=== PATIENT | male | born 1955 | race African-American/Black ===

== ENCOUNTER 2018-09-24 14:37 | Inpatient (IN) | payer MEDICARE ==
[~2018-09-24] VITALS: Ht 182.9 cm; Wt 93.0 kg
[2018-09-24 15:19] LABS: BASOPHILS # (AUTO) 0.1 K/uL (0.0-8.0); LYMPHOCYTES # (AUTO) 1.8 K/uL (20.0-40.0); MONOCYTES # (AUTO) 0.4 K/uL (2.0-10.0)
[2018-09-24 15:20] LABS: BASOPHILS % (AUTO) 0.8 % (0.0-2.0); CREATININE 3.2 mg/dL (0.6-1.3); EOSINOPHILS % (AUTO) 0.6 % (0.0-7.0); LYMPHOCYTES % (AUTO) 25.6 % (20.5-51.5); MEAN CORPUSCULAR HEMOGLOBIN 25.2 uug (23.8-33.4); MEAN CORPUSCULAR HGB CONC 31 g/dL (32.5-36.3); MEAN CORPUSCULAR VOLUME 80.4 fL (73.0-96.2); MONOCYTES % (AUTO) 5.1 % (0.0-11.0); NEUTROPHILS # (AUTO) 4.8 K/uL (1.8-8.9); NEUTROPHILS % (AUTO) 67.9 % (38.5-71.5); PLATELET COUNT (AUTO) 313 K/uL (152-348); POTASSIUM 4.6 mmol/L (3.5-5.1)
[2018-09-24 15:21] LABS: HEMATOCRIT 16.7 % (36.7-47.1); HEMOGLOBIN 5.2 g/dL (12.5-16.3); RED BLOOD CELL COUNT(AUTO) 2.08 MIL/uL (4.06-5.63)
[2018-09-24 15:26] LABS: BILIRUBIN,DIRECT 0.1 mg/dL (0.0-0.2); BILIRUBIN,TOTAL 0.3 mg/dL (0.2-1.0)
[2018-09-24] MEDS ORDERED: PANTOPRAZOLE SODIUM IV 80 MG in IV DEXTROSE 5% 100 ML IV ONE (15:45)
[2018-09-24] MEDS ORDERED: PANTOPRAZOLE SODIUM 40 MG VIAL ONE (16:01)
[2018-09-24 16:02] LABS: BAND % (MANUAL) 1 % (0-10); LYMPHOCYTES % (MANUAL) 24 % (20-40); MONOCYTES % (MANUAL) 4 % (2-10); NEUTROPHILS % (MANUAL) 71 % (42-75)
[2018-09-24] MEDS ORDERED: ALLOPURINOL PO (17:05)
[2018-09-24] MEDS ORDERED: MULT-1169 PO (17:05)
[2018-09-24] MEDS ORDERED: MAGN250T2 PO (17:05)
[2018-09-24] MEDS ORDERED: AMLODIPINE PO (17:05)
[2018-09-24] MEDS ORDERED: REPA1TAB6 PO (17:05)
[2018-09-24] MEDS ORDERED: FINA5TAB11 PO (17:05)
[2018-09-24] MEDS ORDERED: CALC600T12 PO (17:05)
[2018-09-24] MEDS ORDERED: ASPI81TA44 PO (17:05)
[2018-09-24] MEDS ORDERED: CHOL400C8 PO (17:05)
[2018-09-24] MEDS ORDERED: SODI650T PO (17:05)
[2018-09-24] MEDS ORDERED: LISINOPRIL PO (17:05)
[2018-09-24] MEDS ORDERED: [UNRECOGNIZED DRUG - OTHER] PO (17:05)
[2018-09-24] MEDS ORDERED: ONDANSETRON 4 MG/2 ML VIAL IV PRN (18:30)
[2018-09-24] MEDS ORDERED: ENALAPRILAT DIHYDRATE 1.25 MG/1 ML VIAL IV PRN (18:30)
[2018-09-24] MEDS ORDERED: ACETAMINOPHEN 650 MG SUPP.RECT RC PRN (18:30)
[2018-09-24] MEDS ORDERED: MORPHINE SULFATE 2 MG/1 ML DISP.SYRIN IV PRN (18:30)
[2018-09-24 19:28] VITALS: BP 126/67
[2018-09-24 19:34] LABS: IRON, SERUM 383 ug/dL (50-175)
[2018-09-24] MEDS: IV D5 1/2 NS 1000 ML 1,000 ML IV PRN (20:32)
[2018-09-24 23:55] VITALS: BP 128/66
[2018-09-24 23:58] VITALS: BP 128/66
[2018-09-25] VITALS (15 sets, daily range): BP systolic 126–160; BP diastolic 65–75
[2018-09-25 07:33] LABS: BASOPHILS # (AUTO) 0.1 K/uL (0.0-8.0); BASOPHILS % (AUTO) 1.1 % (0.0-2.0); EOSINOPHILS # (AUTO) 0.1 K/uL (0.0-0.7); EOSINOPHILS % (AUTO) 0.9 % (0.0-7.0); LYMPHOCYTES # (AUTO) 1.5 K/uL (20.0-40.0); MEAN CORPUSCULAR HEMOGLOBIN 25.5 uug (23.8-33.4); MEAN CORPUSCULAR HGB CONC 32 g/dL (32.5-36.3); MONOCYTES # (AUTO) 0.5 K/uL (2.0-10.0); MONOCYTES % (AUTO) 7.7 % (0.0-11.0); NEUTROPHILS # (AUTO) 4.4 K/uL (1.8-8.9); NEUTROPHILS % (AUTO) 67.3 % (38.5-71.5); PLATELET COUNT (AUTO) 281 K/uL (152-348); WHITE BLOOD COUNT (AUTO) 6.6 K/uL (3.6-10.2)
[2018-09-25 07:47] LABS: BILIRUBIN,TOTAL 0.2 mg/dL (0.2-1.0); CREATININE 3.3 mg/dL (0.6-1.3); MAGNESIUM 1.6 mg/dL (1.8-2.4); PHOSPHOROUS 3.3 mg/dL (2.5-4.9); POTASSIUM 4.6 mmol/L (3.5-5.1); TOTAL PROTEIN, SERUM 5.3 g/dL (6.4-8.2); URIC ACID 6.8 mg/dL (3.5-7.2)
[2018-09-25 07:51] LABS: HEMATOCRIT 18.2 % (36.7-47.1); RED BLOOD CELL COUNT(AUTO) 2.27 MIL/uL (4.06-5.63)
[2018-09-25 07:53] LABS: HEMOGLOBIN 5.8 g/dL (12.5-16.3)
[2018-09-25 08:14] LABS: THYROID STIMULATING HORMONE 1.539 mIU/mL (0.358-3.740)
[2018-09-25] MEDS ORDERED: PANTOPRAZOLE SODIUM 40 MG VIAL IV SCH (09:00)
[2018-09-25] MEDS ORDERED: MAGNESIUM SULFATE/D5W 100 ML IV SCH ×2 (09:15→09:30)
[2018-09-25] MEDS ORDERED: DEXTROSE 50% 50 ML DISP.SYRIN IV PRN (09:15)
[2018-09-25] MEDS: ESOMEPRAZOLE SODIUM 40 MG VIAL IV SCH (09:33)
[2018-09-25] MEDS: BLOOD SUGAR DIAGNOSTIC 1 EACH STRIP VI SCH ×3 (12:44→23:57)
[2018-09-25] MEDS: INSULIN REGULAR, HUMAN 300 UNIT/3 ML VIAL SQ PRN ×2 (12:46→18:17)
[2018-09-25] MEDS ORDERED: EPOETIN ALFA 10,000 UNITS/ML VIAL SQ ONE (16:00)
[2018-09-25] MEDS ORDERED: diphenhydrAMINE 50 MG/1 ML VIAL IV PRN (19:15)
[2018-09-25] MEDS ORDERED: GOLYTELY 4000 ML BOTTLE PO ONE (19:45)
[2018-09-25 22:38] LABS: *OCCULT BLOOD STOOL POSITIVE (NEGATIVE)
[2018-09-26 03:30] VITALS: BP 145/77
[2018-09-26] MEDS ORDERED: SORBITOL 70% SOLUTION 30 ML UDC ONE (05:40)
[2018-09-26] MEDS: SORBITOL 70% SOLUTION 30 ML UDC PO ONE ×2 (06:26→06:28)
[2018-09-26] MEDS: BLOOD SUGAR DIAGNOSTIC 1 EACH STRIP VI SCH ×3 (06:26→17:51)
[2018-09-26 06:37] LABS: BASOPHILS # (AUTO) 0.1 K/uL (0.0-8.0); EOSINOPHILS # (AUTO) 0.1 K/uL (0.0-0.7); MEAN CORPUSCULAR VOLUME 81.3 fL (73.0-96.2); MONOCYTES # (AUTO) 0.5 K/uL (2.0-10.0); NEUTROPHILS # (AUTO) 5.5 K/uL (1.8-8.9); WHITE BLOOD COUNT (AUTO) 7.7 K/uL (3.6-10.2)
[2018-09-26 06:40] LABS: BASOPHILS % (AUTO) 0.8 % (0.0-2.0); EOSINOPHILS % (AUTO) 1.5 % (0.0-7.0); HEMATOCRIT 21.6 % (36.7-47.1); LYMPHOCYTES # (AUTO) 1.4 K/uL (20.0-40.0); LYMPHOCYTES % (AUTO) 18.8 % (20.5-51.5); MEAN CORPUSCULAR HEMOGLOBIN 26.1 uug (23.8-33.4); MEAN CORPUSCULAR HGB CONC 32 g/dL (32.5-36.3); MONOCYTES % (AUTO) 6.6 % (0.0-11.0); NEUTROPHILS % (AUTO) 72.3 % (38.5-71.5); PLATELET COUNT (AUTO) 288 K/uL (152-348); RED BLOOD CELL COUNT(AUTO) 2.66 MIL/uL (4.06-5.63)
[2018-09-26 06:50] LABS: CREATININE 2.9 mg/dL (0.6-1.3); MAGNESIUM 1.7 mg/dL (1.8-2.4); PHOSPHOROUS 3.2 mg/dL (2.5-4.9); POTASSIUM 4.5 mmol/L (3.5-5.1)
[2018-09-26] MEDS: INSULIN REGULAR, HUMAN 300 UNIT/3 ML VIAL SQ PRN ×3 (07:32→17:52)
[2018-09-26 07:43] LABS: HEMOGLOBIN 6.9 g/dL (12.5-16.3)
[2018-09-26] MEDS: ESOMEPRAZOLE SODIUM 40 MG VIAL IV SCH (08:28)
[2018-09-26 10:11] LABS: EOSINOPHILS % (MANUAL) 2 % (0-8); LYMPHOCYTES % (MANUAL) 20 % (20-40); MONOCYTES % (MANUAL) 6 % (2-10); NEUTROPHILS % (MANUAL) 72 % (42-75)
[2018-09-26] MEDS ORDERED: ALBUTEROL SULFATE 2.5 MG/3 ML NEBU ONE (11:12)
[2018-09-26] MEDS ORDERED: IPRATROPIUM BROMIDE 0.5 MG/2.5 ML NEBU ONE (11:12)
[2018-09-26] MEDS ORDERED: IV NORMAL SALINE 100 ML BAG IV ONE (11:44)
[2018-09-26] MEDS ORDERED: IV NORMAL SALINE 1000 ML BAG IV ONE (11:44)
[2018-09-26] MEDS ORDERED: ETOMIDATE 20 MG/10 ML VIAL MC ONE (11:44)
[2018-09-26] MEDS ORDERED: LIDOCAINE HCL 1% 20 ML VIAL MC ONE (11:44)
[2018-09-26] MEDS ORDERED: diphenhydrAMINE 50 MG/1 ML VIAL MC ONE (11:44)
[2018-09-26] MEDS ORDERED: IRR STERIL WATER FOR IRR 1000 ML BOTTLE IR ONE (11:44)
[2018-09-26] MEDS ORDERED: PROPOFOL 200 MG/20 ML BOTTLE IV ONE (11:44)
[2018-09-26 12:18] VITALS: BP 146/77
[2018-09-26] MEDS: IV D5 1/2 NS 1000 ML 1,000 ML IV PRN (15:45)
[2018-09-26 15:48] VITALS: BP 139/77
[2018-09-26] MEDS ORDERED: MAGNESIUM SULFATE/D5W 100 ML IV SCH (16:00)
[2018-09-26 19:38] VITALS: BP 153/84
[2018-09-26 23:49] VITALS: BP 126/78
[2018-09-27] MEDS ORDERED: DEXTROSE 50% 50 ML DISP.SYRIN IV PRN ×2 (00:15→00:30)
[2018-09-27] MEDS ORDERED: BLOOD SUGAR DIAGNOSTIC 1 EACH STRIP VI SCH (00:15)
[2018-09-27] MEDS ORDERED: INSULIN REGULAR, HUMAN 300 UNIT/3 ML VIAL SQ PRN (00:30)
[2018-09-27] MEDS: BLOOD SUGAR DIAGNOSTIC 1 EACH STRIP VI SCH ×3 (00:37→11:30)
[2018-09-27 03:34] VITALS: BP 138/79
[2018-09-27] MEDS: IV D5 1/2 NS 1000 ML 1,000 ML IV PRN (04:25)
[2018-09-27 06:35] LABS: BILIRUBIN,TOTAL 0.3 mg/dL (0.2-1.0); CREATININE 2.9 mg/dL (0.6-1.3); MAGNESIUM 2.1 mg/dL (1.8-2.4); PHOSPHOROUS 4.1 mg/dL (2.5-4.9); POTASSIUM 4.4 mmol/L (3.5-5.1); TOTAL PROTEIN, SERUM 5.7 g/dL (6.4-8.2)
[2018-09-27 07:04] LABS: BASOPHILS % (AUTO) 0.5 % (0.0-2.0); EOSINOPHILS # (AUTO) 0.1 K/uL (0.0-0.7); EOSINOPHILS % (AUTO) 1.2 % (0.0-7.0); LYMPHOCYTES # (AUTO) 1.6 K/uL (20.0-40.0); LYMPHOCYTES % (AUTO) 19.6 % (20.5-51.5); MEAN CORPUSCULAR HGB CONC 32 g/dL (32.5-36.3); MEAN CORPUSCULAR VOLUME 83.4 fL (73.0-96.2); MONOCYTES # (AUTO) 0.5 K/uL (2.0-10.0); NEUTROPHILS % (AUTO) 72.7 % (38.5-71.5); PLATELET COUNT (AUTO) 320 K/uL (152-348); WHITE BLOOD COUNT (AUTO) 8.2 K/uL (3.6-10.2)
[2018-09-27 07:15] LABS: HEMATOCRIT 25.9 % (36.7-47.1); HEMOGLOBIN 8.4 g/dL (12.5-16.3)
[2018-09-27] MEDS ORDERED: REPAGLINIDE 1 MG TABLET PO SCH (09:00)
[2018-09-27] MEDS: ESOMEPRAZOLE SODIUM 40 MG VIAL IV SCH (09:04)
[2018-09-27] MEDS ORDERED: ASPI-618 PO (10:56)
== END 2018-09-27 11:45 | disposition home or self-care (01) | DRG 377 ==
LOC: ER 14:39 → TELE3 17:29
PROVIDERS: ADMIT Internal Medicine; ATTEND Internal Medicine
PROC: 30233N1 Transfusion of Nonautologous Red Blood Cells into Peripheral Vein, Percutaneous Approach (ICD-10-PCS; principal; 2018-09-25)
PROC: 0DJD8ZZ Inspection of Lower Intestinal Tract, Via Natural or Artificial Opening Endoscopic (ICD-10-PCS; 2018-09-26)
PROC: 0DJ08ZZ Inspection of Upper Intestinal Tract, Via Natural or Artificial Opening Endoscopic (ICD-10-PCS; 2018-09-26)
DX: K25.4 Chronic or unspecified gastric ulcer with hemorrhage (principal); N17.0 Acute kidney failure with tubular necrosis; I21.A1 Myocardial infarction type 2; E43 Unspecified severe protein-calorie malnutrition; D62 Acute posthemorrhagic anemia; I50.22 Chronic systolic (congestive) heart failure; N17.9 Acute kidney failure, unspecified; N18.4 Chronic kidney disease, stage 4 (severe); K26.4 Chronic or unspecified duodenal ulcer with hemorrhage; E11.65 Type 2 diabetes mellitus with hyperglycemia; Z79.82 Long term (current) use of aspirin; D64.9 Anemia, unspecified; I12.9 Hypertensive chronic kidney disease with stage 1 through stage 4 chronic kidney disease, or unspecified chronic kidney disease; E11.22 Type 2 diabetes mellitus with diabetic chronic kidney disease; E86.9 Volume depletion, unspecified; Z85.528 Personal history of other malignant neoplasm of kidney; Z90.5 Acquired absence of kidney; K64.8 Other hemorrhoids; Z87.891 Personal history of nicotine dependence; R00.0 Tachycardia, unspecified; N40.0 Benign prostatic hyperplasia without lower urinary tract symptoms; E78.5 Hyperlipidemia, unspecified; I11.0 Hypertensive heart disease with heart failure; K21.9 Gastro-esophageal reflux disease without esophagitis
CPT/HCPCS: 36415; 43235; 70030-TC; 71045; 83550; 83735; 84100; 84443; 84550; 85025; 85730; 86850; 86900; 86901; 86920; 93005; 93307; A4217; A4663; C9113; G0378; J0885; J1200; J1815; J3475; J3490; J3590; J7030; J7040; J7050; J7060; P9016-BL; P9021